=== PATIENT | male | born 1995 | race Caucasian/White ===

== ENCOUNTER 2024-01-25 10:49 | Outpatient (CLI) | payer OTHER ==
--- NOTE | 2024-01-25 21:19 | XRAY Report ---
PROCEDURE: Chest 2V INDICATIONS: ATYPICAL CHEST PAIN TECHNIQUE: 2 views of the chest were acquired. COMPARISON: None. FINDINGS: Surgical changes and devices: None. Lungs and pleura: No pleural effusions or pneumothorax. Lungs are clear. Mediastinum: Mediastinal contours appear normal. Heart size is normal. Bones and chest wall: No suspicious bony lesions. Overlying soft tissues appear unremarkable. IMPRESSION: No acute cardiopulmonary process. Reviewed by: Johana Richardson MD on 01/25/2024 9:18 PM PST Approved by: Johana Richardson MD on 01/25/2024 9:18 PM PST Station ID: [id number]
== END 2024-01-25 10:50 | disposition home or self-care (01) ==
LOC: DI 10:49
PROVIDERS: ATTEND Registered Nurse
DX: R07.89 Other chest pain (principal)

== ENCOUNTER 2024-02-08 12:14 | Emergency (ER) | payer OTHER ==
--- NOTE | 2024-02-08 12:56 | ED Physician Documentation ---
History of Present Illness - Stated complaint Stated Complaint: CP RT SIDE - Chief complaint Chief Complaint: Resp - History obtained from History obtained from: Patient - History of Present Illness Timing: Today Pain level max: 6 Pain level now: 5 - Additonal information Additional information: Patient is a 28-year-old male who presents to the emergency department stating that he was seen at the [employer] yesterday and diagnosed with right-sided pneumonia. Has had continued right-sided chest pain since that time. Worse with breathing, worse with movement. Has had a cough for the past 2 weeks. He was started on amoxicillin and azithromycin yesterday. Has had chills but no documented fevers at home. He went to the walk-in clinic today for continued right-sided chest pain. Was sent here for further evaluation. Has a history of "childhood asthma". Does not currently use an inhaler. No nausea or vomiting. No diarrhea. No constipation. 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 Review of Systems Cardiac: denies: Chest pain / pressure Respiratory: reports: Dyspnea, Cough, Wheezing GI: denies: Nausea, Vomiting, Diarrhea Skin: denies: Rash PD PAST MEDICAL HISTORY - Past Medical History Past Medical History: Yes Cardiovascular: None Respiratory: Asthma Neuro: None Endocrine/Autoimmune: None GI: None : None HEENT: None Psych: None Musculoskeletal: None Derm: None - Past Surgical History Past Surgical History: No - Present Medications Home Medications: Ambulatory Orders Medication Instructions Recorded Confirmed Amoxicillin 1,000 mg PO BID 02/08/24 02/08/24 Azithromycin 250 mg PO DAILY 02/08/24 02/08/24 Ibuprofen [Motrin] 1 tablet PO Q6HR PRN 02/08/24 02/08/24 Oxycodone HCl/Acetaminophen 1 - 2 each PO Q6H PRN #14 tablet 02/08/24 [Percocet 5-325 mg Tablet] MDD 6 tabs - Allergies Allergies/Adverse Reactions: Allergies Allergy/AdvReac Type Severity Reaction Status Date / Time No Known Drug Allergies Allergy Verified 02/08/24 12:18 - Social History Does the pt smoke?: No Smoking Status: Never smoker Does the pt drink ETOH?: Yes Does the pt have substance abuse?: No - Immunizations Immunizations are current?: Yes - POLST Patient has POLST: No PD ED PE NORMAL - Vitals Vital signs reviewed: Yes - General General: Alert and oriented X 3, No acute distress - HEENT HEENT: Moist mucous membranes - Neck Neck: Supple, no meningeal sign - Cardiac Cardiac: RRR - Respiratory Respiratory: No respiratory distress, Other (Diminished breath sounds bilaterally) - Abdomen Abdomen: Soft, Non tender, Non distended - Derm Derm: Warm and dry - Extremities Extremities: No edema - Neuro Neuro: Alert and oriented X 3 - Psych Psych: Normal mood, Normal affect Results - Vitals Vitals: Vital Signs - 24 hr 02/08/24 02/08/24 02/08/24 12:19 12:57 13:34 Temperature 36.1 C L Heart Rate 92 89 89 Respiratory 20 22 16 Rate Blood Pressure 143/80 H 149/99 H O2 Saturation 96 97 Oxygen O2 Source Room air - EKG (time done) 1228 EKG releavant findings:: EKG personally interpreted by author of this note. Relevant findings are: Rate: Rate (enter#) (84) Rhythm: NSR [place]: Normal Intervals: Normal [place] QRS: Normal Ischemia: Normal ST segments - Labs Labs: Laboratory Tests 02/08/24 02/08/24 02/08/24 12:35 13:20 13:47 WBC 32.8 H RBC 4.54 L Hgb 14.4 Hct 42.2 MCV 93.0 MCH 31.7 H MCHC 34.1 RDW 11.2 L Plt Count 300 MPV 9.8 Neut # (Auto) Not Reportable Lymph # (Auto) Not Reportable [place] # (Auto) Not Reportable Eos # (Auto) Not Reportable Baso # (Auto) Not Reportable Absolute Nucleated RBC Not Reportable Total Counted 100 Band Neuts % (Manual) 12 H Reactive Lymphs % (Man) 4 Abnorm Lymph % (Manual) 0 Nucleated RBC % Not Reportable Neutrophils # (Manual) 29.8 H Lymphocytes # (Manual) 1.6 Monocytes # (Manual) 1.0 Eosinophils # (Manual) 0.3 Basophils # (Manual) 0.0 Differential Comment MANUAL DIFFERENTIAL Manual Slide Review Indicated RBC Morph Micro Appear 1+ ANISOCYTOSIS Sodium 134 L Potassium 4.0 Chloride 103 Carbon Dioxide 23 Anion Gap 8.0 BUN 16 Creatinine 0.8 Estimated GFR (MDRD) 115 Glucose 123 H Calcium 9.2 Nasal Adenovirus (PCR) NOT DETECTED Nasal B. parapertussis DNA (PCR) NOT DETECTED Nasal Coronavir 229E PCR NOT DETECTED Nasal Coronavir HKU1 PCR NOT DETECTED Nasal Coronavir NL63 PCR NOT DETECTED Nasal Coronavir OC43 PCR NOT DETECTED Nasal Enterovir/Rhinovir PCR NOT DETECTED Nasal Influenza B PCR NOT DETECTED Nasal Influenza A PCR NOT DETECTED Nasal Parainfluen 1 PCR NOT DETECTED Nasal Parainfluen 2 PCR NOT DETECTED Nasal Parainfluen 3 PCR NOT DETECTED Nasal Parainfluen 4 PCR NOT DETECTED Nasal RSV (PCR) NOT DETECTED Nasal B.pertussis DNA PCR NOT DETECTED Nasal C.pneumoniae (PCR) NOT DETECTED Hua Human Metapneumo PCR NOT DETECTED Nasal M.pneumoniae (PCR) NOT DETECTED Nasal SARS-CoV-2 (PCR) NOT DETECTED - Rads (name of study) Chest x-ray Relevant Findings:: Final report received, See rad report PD Medical Decision Making - ED course Complexity details: reviewed results, re-evaluated patient, considered differential, d/w patient ED course: Patient is a 28-year-old male with right middle lobe pneumonia on chest x-ray. Elevated white blood cell count, had been on steroids recently. He was given albuterol here. As well as a dose of morphine and oxycodone. Pain improved. No significant effusion on chest x-ray. No indication for emergent CT. No evidence of PE. We will trial him on antibiotics over the next few days to see how he improves. He is already on amoxicillin and azithromycin, prescribed yesterday by the [place] [facility]. Recommend repeat chest x-ray next week to ensure that things are improving as expected. If he fails to improve as expected, would consider CT scan at that time. No calf swelling or tenderness. No evidence of significant effusion on chest x-ray. We will have him follow-up with his PCP for further care. No hypoxia. No respiratory distress. Patient counseled regarding signs and symptoms for which I believe and urgent re- evaluation would be necessary. Patient with good understanding of and agreement to plan and is comfortable going home at this time This document was made in part using voice recognition software. While efforts are made to proofread this document, sound alike and grammatical errors may occur. Patient states that he has an inhaler at home that he has only used 3 times, therefore does not need a new inhaler. Departure - Departure Disposition: 01 Home, Self Care Clinical Impression: Pneumonia Qualifiers: Pneumonia type: due to unspecified organism Laterality: right Lung location: middle lobe of lung Qualified Code(s): J18.9 - Pneumonia, unspecified organism Condition: Good Instructions: ED Pneumonia Adult Follow-Up: RAYMOND MARTIN MD [Primary Care Provider] - Within 1 week Prescriptions: Oxycodone HCl/Acetaminophen [Percocet 5-325 mg Tablet] 1 - 2 each PO Q6H PRN #14 tablet MDD 6 tabs PRN Reason: pain Comments: Your prescriptions were sent to [facility] in [place]. It is common for pneumonia to cause chest pain. Would recommend continuing the antibiotics at home, we will prescribe pain medication for you as well. The albuterol inhaler can help with pain as well. You should have a repeat chest x-ray in 1 week, if the x-ray is not improved or if you are failing to improve, would consider a CT scan at that time. I am prescribing a short course of narcotic pain medication for you. These are potentially dangerous and addictive medications that should be used carefully. These medications may constipate you. Take an [id number]-krm-[id number] stool softener (docusate) twice daily with plenty of water while taking these medications. If you go 24 hours without a bowel movement, take [id number] miralax, per package instructions. Do not drink or drive while taking these medications. If you received narcotic or sedating medications while in the emergency department, do not drive for 24 hours. Store this medication in a safe, secure place and out of reach of children. It is a violation of federal law to give or sell this medication to another person or to use in a manner other than prescribed. The ED will not refill narcotic prescriptions, including prescriptions lost or stolen. To dispose of unwanted medications: 1. [facility] at [address] in [place] has a medication drop box. They accept prescription medications (in pill form) Saturday through Saturday 9:00 a.m. to 5:00 p.m. 2. The [facility] at [place] [employer] accepts prescription medications (in pill form only) for disposal year round. Call for more information. 3. Contact the [facility] for the next [facility] sponsored prescription drug collection event. , [phone], or [phone]; Forms: PCP List
[2024-02-08] MEDS: DEXAMETHASONE 10 MG/ML VIAL PO STA (13:16)
[2024-02-08] MEDS: oxyCODONE 5 MG TABLET PO STA (13:16)
[2024-02-08] MEDS: CHERRY SYRUP 10 ML UDC PO ONE (13:16)
[2024-02-08 13:26] LABS: BASOPHILS % (AUTO) 0.4 %; HCT - HEMATOCRIT 42.2 % (42.0-52.0); HGB - HEMOGLOBIN 14.4 g/dL (14.0-18.0); LYMPHOCYTES % (AUTO) 3.5 %; MEAN CORPUSCULAR HEMOGLOBIN 31.7 pg (27.0-31.0); MEAN CORPUSCULAR HGB CONC 34.1 g/dL (32.0-36.0); MEAN PLATELET VOLUME 9.8 fL (7.4-11.4); MONOCYTES % (AUTO) 5.5 %; NEUTROPHILS % (AUTO) 88.3 %; PLT - PLATELET COUNT 300 10^3/uL (130-450); RED BLOOD COUNT 4.54 10^6/uL (4.70-6.10); RED CELL DISTRIBUTION WIDTH 11.2 % (12.0-15.0); WHITE BLOOD COUNT 32.8 x10^3/uL (4.8-10.8)
[2024-02-08] MEDS: IPRATROPIUM/ALBUTEROL 3 ML NEB INH STA (13:30)
[2024-02-08 13:31] LABS: SLIDE REVIEW? Indicated
[2024-02-08 13:32] LABS: ABNORMAL LYMPHS % (MANUAL) 0 %
[2024-02-08] MEDS: MORPHINE 2 MG/ML CARPUJECT IVP STA (13:32)
[2024-02-08] MEDS: SODIUM CHLORIDE 0.9% 1,000 ML IV STA (13:34)
[2024-02-08 13:35] LABS: B. PARAPERTUSSIS- RESP PCR PAN NOT DETECTED; B. PERTUSSIS- RESP PCR PANEL NOT DETECTED; C. PNEUMONIAE- RESP PCR PANEL NOT DETECTED; CORONAVIRUS 229E-RESP PCR NOT DETECTED; CORONAVIRUS HKU1-RESP PCR NOT DETECTED; CORONAVIRUS NL63-RESP PCR NOT DETECTED; CORONAVIRUS OC43-RESP PCR NOT DETECTED; HUMAN METAPNEUMOVIRUS NOT DETECTED; INFLUENZA A- RESP PCR PANEL NOT DETECTED; INFLUENZA B - RESP PCR PANEL NOT DETECTED; M. PNEUMONIAE- RESP PCR PANEL NOT DETECTED; PARAINFLUENZA VIRUS 1 NOT DETECTED; PARAINFLUENZA VIRUS 2 NOT DETECTED; PARAINFLUENZA VIRUS 3 NOT DETECTED; PARAINFLUENZA VIRUS 4 NOT DETECTED; RHINOVIRUS/ENTEROVIRUS NOT DETECTED; RSV- RESP PCR PANEL NOT DETECTED; SARS-CoV-2 -RESP PCR PANEL NOT DETECTED
[2024-02-08 13:45] LABS: BAND NEUTROPHILS % (MANUAL) 12 %; EOSINOPHILS # (MANUAL) 0.3 10^3/uL (0-0.7); LYMPHOCYTES # (MANUAL) 1.6 10^3/uL (1.5-3.5); LYMPHOCYTES % (MANUAL) 1 %; NEUTROPHILS # (MANUAL) 29.8 10^3/uL (1.5-6.6); REACTIVE LYMPHS % (MANUAL) 4 %
[2024-02-08 13:46] LABS: DIFFERENTIAL COMMENT MANUAL DIFFERENTIAL; RBC MORPHOLOGY (MULTIPLE) 1+ ANISOCYTOSIS (NORMAL)
[2024-02-08 14:08] LABS: CALCIUM 9.2 mg/dL (8.5-10.3); CREATININE 0.8 mg/dL (0.6-1.3)
[2024-02-08 14:53] VITALS: BP 153/78; O2SAT 96
--- NOTE | 2024-02-08 16:16 | XRAY Report ---
PROCEDURE: Chest 2V INDICATIONS: cough TECHNIQUE: 2 views of the chest were acquired. COMPARISON: None. FINDINGS: Surgical changes and devices: None. Lungs and pleura: Consolidation within the medial right midlung. No pleural effusion. No pneumothora x Mediastinum: Mediastinal contours appear normal. Heart size is normal. Bones and chest wall: No suspicious bony lesions. Overlying soft tissues appear unremarkable. IMPRESSION: Right middle lobe pneumonia Reviewed by: Raúl Collins MD on 02/08/2024 12:04 PM OLENA Approved by: Raúl Collins MD on 02/08/2024 12:04 PM OLENA Station ID: [id number]
== END 2024-02-08 14:49 | disposition home or self-care (01) ==
LOC: ED 12:14
DX: J18.9 Pneumonia, unspecified organism (principal); Z11.52 Encounter for screening for COVID-19
CPT/HCPCS: 36415; 71046; 80048; 85025; 87633; 93005; 94640; 96374; 99284; A9270

== ENCOUNTER 2024-02-14 10:35 | Emergency (ER) | payer OTHER ==
[2024-02-14 10:45] VITALS: O2SAT 98
--- NOTE | 2024-02-14 11:17 | XRAY Report ---
PROCEDURE: Chest 1V INDICATIONS: chest pain TECHNIQUE: One view of the chest was acquired. COMPARISON: Chest X-ray, 02/08/2024. FINDINGS: Surgical changes and devices: None. Lungs and pleura: Right mid to lower lung zone infiltrate consistent with pneumonia. Small right per fusion. No pneumothorax. Mediastinum: Mediastinal contours appear normal. Heart size is normal. Bones and chest wall: No suspicious bony lesions. Overlying soft tissues appear unremarkable. IMPRESSION: Persistent right mid to lower lung zone pneumonia. Reviewed by: Yessy Clement MD on 02/14/2024 11:16 AM PDT Approved by: Yessy Clement MD on 02/14/2024 11:16 AM PDT Station ID: [id number]
[2024-02-14] MEDS ORDERED: iohexoL-300 100 ML VIAL ONE (11:55)
--- NOTE | 2024-02-14 11:59 | ED Physician Documentation ---
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 Previously healthy. He traveled to [facility] about 3-1/2 weeks ago. He started to get a cough a couple of weeks ago and presented to the [employer] [facility] a week ago to the day. He he was diagnosed with pneumonia and started on a 5-day course of amoxicillin and azithromycin. The next day he went to the urgent care and was referred here. He had an x-ray showing right middle lobe pneumonia, a white count of 32,000 with 12% bandemia. He had mild hyponatremia with a negative respiratory PCR panel. He was still on antibiotics at the time and had only been on them for a day. As such it was felt that the antibiotics were appropriate and not changed. He finished the antibiotics 3 days ago. He was having a lot of right-sided chest pain which was terrible over the weekend but is better today. Still has chills and sweats. PD PAST MEDICAL HISTORY - Past Medical History Past Medical History: No Cardiovascular: None Respiratory: Asthma Neuro: None Endocrine/Autoimmune: None GI: None : None HEENT: None Psych: None Musculoskeletal: None Derm: None - Past Surgical History Past Surgical History: No - Present Medications Home Medications: Ambulatory Orders Medication Instructions Recorded Confirmed Amoxicillin 1,000 mg PO BID 02/08/24 02/14/24 Azithromycin 250 mg PO DAILY 02/08/24 02/14/24 Ibuprofen [Motrin] 1 tablet PO Q6HR PRN 02/08/24 02/14/24 Oxycodone HCl/Acetaminophen 1 - 2 each PO Q6H PRN #14 tablet 02/08/24 02/14/24 [Percocet 5-325 mg Tablet] MDD 6 tabs Amox/Clav 875/125 [Augmentin] 1 each PO Q12H #20 tablet 02/14/24 Doxycycline [Vibramycin] 100 mg PO BID #20 tablet 02/14/24 - Allergies Allergies/Adverse Reactions: Allergies Allergy/AdvReac Type Severity Reaction Status Date / Time No Known Drug Allergies Allergy Verified 02/14/24 10:38 - Social History Does the pt smoke?: No Smoking Status: Never smoker Does the pt drink ETOH?: Yes Does the pt have substance abuse?: No - Immunizations Immunizations are current?: Yes - POLST Patient has POLST: No PD ED PE NORMAL - Vitals Vital signs reviewed: Yes - General General: Alert and oriented X 3, No acute distress - Neck Neck: Supple, no meningeal sign, No bony TTP - Cardiac Cardiac: RRR, No murmur - Respiratory Respiratory: No respiratory distress, Other (Rhonchorous on the right and diminished on the right, nonlabored) - Abdomen Abdomen: Non tender - Extremities Extremities: No edema, No calf tenderness / cord - Neuro Neuro: Alert and oriented X 3, Normal speech Results - Vitals Vitals: Vital Signs - 24 hr 02/14/24 02/14/24 02/14/24 10:38 13:22 14:25 Temperature 36.8 C Heart Rate 80 88 84 Respiratory 16 16 16 Rate Blood Pressure 160/80 H 158/91 H 154/86 H O2 Saturation 98 98 98 Oxygen O2 Source Room air - Labs Labs: Microbiology 02/14/24 13:30 Body Fluid Culture - Preliminary Pleural Fluid Laboratory Tests 02/14/24 02/14/24 02/14/24 12:00 12:00 12:00 WBC 16.4 H RBC 4.22 L Hgb 13.2 L Hct 39.9 L MCV 94.5 H MCH 31.3 H MCHC 33.1 RDW 11.0 L Plt Count 435 MPV 9.3 Neut # (Auto) 11.6 H Lymph # (Auto) 2.2 [place] # (Auto) 1.4 H Eos # (Auto) 0.6 Baso # (Auto) 0.1 Absolute Nucleated RBC 0.00 Nucleated RBC % 0.0 Manual Slide Review Indicated Platelet Estimate NORMAL (130-450,000) Platelet Morphology NORMAL APPEARANCE RBC Morph Micro Appear NORMAL APPEARANCE Sodium 136 Potassium 4.4 Chloride 100 L Carbon Dioxide 29 Anion Gap 7.0 BUN 15 Creatinine 0.9 Estimated GFR (MDRD) 100 Glucose 93 Lactic Acid 0.7 Calcium 9.5 Total Bilirubin 0.5 AST 33 ALT 65 H Alkaline Phosphatase 191 H Total Protein 7.9 Albumin 3.6 Globulin 4.3 H Albumin/Globulin Ratio 0.8 L Fluid Source Fluid Color Fluid Clarity Fluid WBC Fluid RBC Fluid Neutrophils % Fluid Lymphocytes % Fluid Monocytes % Fld Mesothelial Cell % 02/14/24 13:30 WBC RBC Hgb Hct MCV MCH MCHC RDW Plt Count MPV Neut # (Auto) Lymph # (Auto) [place] # (Auto) Eos # (Auto) Baso # (Auto) Absolute Nucleated RBC Nucleated RBC % Manual Slide Review Platelet Estimate Platelet Morphology RBC Morph Micro Appear Sodium Potassium Chloride Carbon Dioxide Anion Gap BUN Creatinine Estimated GFR (MDRD) Glucose Lactic Acid Calcium Total Bilirubin AST ALT Alkaline Phosphatase Total Protein Albumin Globulin Albumin/Globulin Ratio Fluid Source PLEURAL Fluid Color YELLOW Fluid Clarity CLEAR Fluid WBC 162 Fluid RBC < 3000 Fluid Neutrophils % 79 Fluid Lymphocytes % 9 Fluid Monocytes % 2 Fld Mesothelial Cell % Not Reportable - Rads (name of study) 1v chest Relevant Findings:: Final report received, EMP independent interpretation of test CT Chest Relevant Findings:: Final report received (Moderate to large right pleural effusion with atelectasis versus consolidation with percolate partially loculated component and mediastinal adenopathy with, likely reactive), EMP independent interpretation of test Procedures - Thoracentesis - Major Preparation: Consent obtained, Sterile prep and drape Technique: Catheter over needle, Right, Ultrasound used Fluid: Clear, Sent for cell count, Sent for gram stain, Sent for culture Aftercare: CXR obtained PD Medical Decision Making - ED course ED course: 28-year-old gentleman with persistent and at least worsening pneumonia on x-ray. He did have pretty significant lab abnormalities when he was seen here the other day. He appears well with normal vital signs, but the x-ray looks worse today. He recently returned from [place], so travel would make me think of Legionella, and leptospirosis is endemic there, but uncommonly causes pulmonary symptoms. I will send off a sputum sample, PCR for Legionella from sputum and IgG/IgM for leptospirosis. Will treat presumptively here with Rocephin and doxycycline. Will obtain basic labs and cultures as well as a sputum culture. 28-year-old gentleman who has subsequently the CT to my eye showed large right pleural effusion with really not much in the way of residual pneumonia in the right side. This could be an empyema or a parapneumonic effusion. Thoracentesis was done, and grossly looks more like a parapneumonic effusion wit h a appearance like straw-colored fluid, catheter did not work so great and was only been able to get about 200 mL out before it stopped working. The patient tolerated well and it was sent for cell count and culture/Gram stain. The cell count is very reassuring that this is a parapneumonic effusion and not an empyema consistent with the visual clarity of the fluid itself. He looks well, labs are improving, so I think he can go home. 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 Departure - Departure Disposition: Home, Self Care Clinical Impression: Parapneumonic effusion Condition: Good Record reviewed to determine appropriate education?: Yes Instructions: ED Effusion Pleural Prescriptions: Amox/Clav 875/125 [Augmentin] 1 each PO Q12H #20 tablet Doxycycline [Vibramycin] 100 mg PO BID #20 tablet Comments: You are seen today for persistent pneumonia symptoms and we found that you had a parapneumonic effusion which is fluid outside the lungs that is inflammatory in nature but does not look infected on the labs that we ran on it. Your flight surgeon is aware and should be following up with repeat labs next week and serial chest x-rays, if it fails to improve on its own you may need eventually a referral to a conformal pad former. Return if worse. Forms: PCP List Discharge Date/Time: 02/14/24 14:27
[2024-02-14] MEDS: cefTRIAXone 1 GM VIAL IVP STA (12:24)
[2024-02-14 12:25] LABS: BASOPHILS # (AUTO) 0.1 10^3/uL (0.0-0.1); BASOPHILS % (AUTO) 0.5 %; EOSINOPHILS # (AUTO) 0.6 10^3/uL (0.0-0.7); EOSINOPHILS % (AUTO) 3.4 %; HCT - HEMATOCRIT 39.9 % (42.0-52.0); HGB - HEMOGLOBIN 13.2 g/dL (14.0-18.0); LYMPHOCYTES # (AUTO) 2.2 10^3/uL (1.5-3.5); LYMPHOCYTES % (AUTO) 13.5 %; MEAN CORPUSCULAR HEMOGLOBIN 31.3 pg (27.0-31.0); MEAN CORPUSCULAR HGB CONC 33.1 g/dL (32.0-36.0); MEAN CORPUSCULAR VOLUME 94.5 fL (80.0-94.0); MEAN PLATELET VOLUME 9.3 fL (7.4-11.4); MONOCYTES # (AUTO) 1.4 10^3/uL (0.0-1.0); MONOCYTES % (AUTO) 8.5 %; NEUTROPHILS # (AUTO) 11.6 10^3/uL (1.5-6.6); NEUTROPHILS % (AUTO) 70.8 %; PLT - PLATELET COUNT 435 10^3/uL (130-450); RED BLOOD COUNT 4.22 10^6/uL (4.70-6.10); WHITE BLOOD COUNT 16.4 x10^3/uL (4.8-10.8)
[2024-02-14] MEDS: DOXYCYCLINE INJ 100 MG in SODIUM CHLORIDE 0.9% MINIBAG 100 ML IV STA (12:25)
[2024-02-14 12:28] LABS: SLIDE REVIEW? Indicated
[2024-02-14 12:38] LABS: ALBUMIN 3.6 g/dL (3.2-5.5); ALBUMIN/GLOBULIN RATIO 0.8 (1.0-2.2); BILIRUBIN,TOTAL 0.5 mg/dL (0.2-1.0); CALCIUM 9.5 mg/dL (8.5-10.3); CREATININE 0.9 mg/dL (0.6-1.3); POTASSIUM 4.4 mmol/L (3.5-4.5); TOTAL PROTEIN 7.9 g/dL (6.4-8.9)
[2024-02-14 12:43] LABS: PLATELET ESTIMATE, MANUAL NORMAL (130-450,000) (NORMAL); PLATELET MORPHOLOGY NORMAL APPEARANCE (NORMAL); RBC MORPHOLOGY (MULTIPLE) NORMAL APPEARANCE (NORMAL)
[2024-02-14] MEDS: iohexoL-300 100 ML VIAL IVP ONE (13:24)
[2024-02-14] MEDS: KETOROLAC 15 MG/ML VIAL IVP STA (13:45)
[2024-02-14 14:05] LABS: CC,BF RBC < 3000 /mm^3; CC,BF WBC 162 /mm^3
[2024-02-14 14:07] LABS: BF CLARITY CLEAR; BF COLOR YELLOW; BF SOURCE PLEURAL
[2024-02-14 14:28] VITALS: BP 154/86
[2024-02-14 14:52] LABS: LYMPHOCYTES %,BODY FLUID 9 %; MONOCYTES %,BODY FLUID 2 %; NEUTROPHILS %, BF 79 %
--- NOTE | 2024-02-14 14:58 | CT Report ---
PROCEDURE: Chest W INDICATIONS: pneumonia, failed tx CONTRAST: 100ml omni 300 TECHNIQUE: After the administration of intravenous contrast, a CT scan of the chest was performed. Images were recorded and evaluated at appropriate window settings. Reformats: axial MIP of the chest, coronal and sagittal. For radiation dose reduction, the following was used: automated exposure control, adjustme nt of mA and/or kV according to patient size. COMPARISON: Chest x-ray 02/14/2024. FINDINGS: Image quality: Diagnostic. Chest wall and lower neck: No thyroid nodule which requires sonographic follow up. No axillary or sup raclavicular adenopathy by size. Lungs and pleura: Moderate to large right pleural effusion with adjacent atelectasis versus consolida tion. There is a partially loculated component to the effusion extending anteriorly in the right midd le lobe. Mediastinum: Heart size is normal. No pericardial effusion. No large vessel abnormality. Prominent an d mildly enlarged mediastinal lymph nodes. For example a right paratracheal lymph node measuring 1.4 cm in short axis (02/13). Bones: No aggressive osseous abnormality. Upper Abdomen: Unremarkable. IMPRESSION: 1.Moderate to large right pleural effusion with adjacent atelectasis versus consolidation. There is a partially loculated component extending anteriorly. 2.Prominent and mildly enlarged mediastinal lymph nodes, likely reactive. Reviewed by: Jenaro Elder MD on 02/14/2024 2:57 PM PDT Approved by: Jenaro Elder MD on 02/14/2024 2:57 PM PDT Station ID: [id number]
--- NOTE | 2024-02-14 17:22 | XRAY Report ---
PROCEDURE: Post Thoracentesis 1V CXR INDICATIONS: post r thoracentesis TECHNIQUE: One view of the chest was acquired. COMPARISON: Prior chest CT 02/14/2024. Also plain film imaging same day.. FINDINGS: Surgical changes and devices: None. Lungs and pleura: Dense opacification persists over the right hemithorax, as expected related to rig ht-sided airspace disease and a large right pleural effusion. No pneumothorax after reported right-si ded thoracentesis. Mediastinum: Mediastinal contours appear normal. Heart size is normal. Bones and chest wall: No suspicious bony lesions. Overlying soft tissues appear unremarkable. IMPRESSION: No pneumothorax after right-sided thoracentesis. Reviewed by: Handy Martinez MD on 02/14/2024 3:40 PM PDT Approved by: Handy Martinez MD on 02/14/2024 3:40 PM PDT Station ID: [id number]
== END 2024-02-14 14:27 | disposition home or self-care (01) ==
LOC: ED 10:35
DX: J18.1 Lobar pneumonia, unspecified organism (principal); J91.8 Pleural effusion in other conditions classified elsewhere
CPT/HCPCS: 32554; 36415; 71045; 71260; 80053; 81599; 83605; 85025; 87040; 87070; 87205; 89051; 93005; 96365; 96375; 99284; 99285; Q9967